=== PATIENT | female | born 1960 | race Two or more races ===

== ENCOUNTER 2018-08-12 20:55 | Emergency (ER) | payer OTHER ==
[~2018-08-12] VITALS: Ht 165.1 cm; Wt 90.7 kg
== END 2018-08-12 22:10 | disposition home or self-care (01) ==
LOC: ER 20:55
DX: S80.01XA Contusion of right knee, initial encounter (principal); W18.39XA Other fall on same level, initial encounter; Y93.89 Activity, other specified; Y92.89 Other specified places as the place of occurrence of the external cause; Y99.8 Other external cause status

== ENCOUNTER 2020-04-11 12:00 | Emergency (ER) | payer OTHER ==
[~2020-04-11] VITALS: Ht 165.1 cm; Wt 99.8 kg
[2020-04-11] MEDS ORDERED: SKELAXIN800 MG PO (16:01)
[2020-04-11] MEDS ORDERED: MEDROLPACK PO (16:01)
== END 2020-04-11 16:38 | disposition home or self-care (01) ==
LOC: ER 12:00
DX: S33.5XXA Sprain of ligaments of lumbar spine, initial encounter (principal); S13.4XXA Sprain of ligaments of cervical spine, initial encounter; M62.830 Muscle spasm of back; R07.89 Other chest pain; V43.52XA Car driver injured in collision with other type car in traffic accident, initial encounter; Y93.89 Activity, other specified; Y92.488 Other paved roadways as the place of occurrence of the external cause; Y99.8 Other external cause status

== ENCOUNTER 2022-06-15 15:42 | Inpatient (IN) | payer OTHER ==
[~2022-06-15] VITALS: Ht 165.1 cm; Wt 230.0 kg
[~2022-06-15 15:42] MED LIST: MEDROLPACK PO; SKELAXIN800 MG PO
[2022-06-15] MEDS ORDERED: PROMETRIUM200 MG (16:11)
--- NOTE | 2022-06-15 16:14 | NUR ---
PACIENTE ALERTA Y ORIENTADA EN SAVI ADE ESFERAS REFIERE TENER DOLOR ABDOMINAL QUE SE IRRADIA HACIA LOS COSTADOS Y LA ESPALDA BAJA. EN ADICION PACIENTE REFIERE TENER NAUSEAS. SE MONITOREAN VS Y SE UBICA EN PASILLO
--- NOTE | 2022-06-15 17:38 | NUR ---
PACIENTE EVALUADA POR EL QUIEN ORDENA TRATAMIENTO MEDICO. CRISTAL CEJA REALIZA MUESTRAS BAJO MEDIDAS ASEPTICAS Y ADMINISTRA MEDICAMENTOS SHADE ORDEN . SE ORIENTA SOBRE SONO ABD Y SE HACE ENTREGA DE U/A.
--- NOTE | 2022-06-16 01:26 | NUR ---
SE RECIBE PTE DEL TURNO ANTERIOR, ALERTA Y ORIENTADA EN SAVI ADE ESFERAS, UBICADA EN BILL NIVEL MAS BAJO, EATON DE IDENTIFICACION Y BARANDAS ELEVADAS POR PRECAUCION. SE OBSERVA CON BUEN PATRON RESPIRATORIO, PIEL TIBIA AL TACTO. IV PATENTE Y ABIODUN DE EDEMA O ERITEMA RECIBIENDO 0.9% NSS @120ML/HR. PENDIENTE CONSULTA CON DR COHN (MEDIC[facility] INTERNA) Y DR TYSON ([place]IR[place]). SE MANTIENE BAJO OBSERVACION.
== END 2022-06-19 20:08 | disposition home or self-care (01) | DRG 373 ==
LOC: ER 15:42 → SEC-K 06-16 10:44 → MEDI 06-16 10:44
PROVIDERS: ADMIT Internal Medicine; ATTEND Internal Medicine
DX: K35.890 Other acute appendicitis without perforation or gangrene (principal); Z20.822 Contact with and (suspected) exposure to COVID-19; I10 Essential (primary) hypertension

== ENCOUNTER 2022-09-28 15:13 | Emergency (ER) | payer OTHER ==
[~2022-09-28] VITALS: Ht 165.1 cm; Wt 104.3 kg
[~2022-09-28 15:13] MED LIST changes: +PROMETRIUM200 MG
[2022-09-28] MEDS ORDERED: [UNRECOGNIZED DRUG - OTHER] (15:54)
[2022-09-28] MEDS ORDERED: PRELONE (15:55)
[2022-09-28] MEDS ORDERED: XOPENEX0.63 MG/3 (15:55)
[2022-09-28] MEDS ORDERED: [UNRECOGNIZED DRUG - OTHER] (15:55)
== END 2022-09-28 22:38 | disposition home or self-care (01) ==
LOC: ER 15:13
DX: J20.9 Acute bronchitis, unspecified (principal)

== ENCOUNTER 2024-09-30 03:50 | Emergency (ER) | payer OTHER ==
[~2024-09-30] VITALS: Ht 165.1 cm; Wt 104.3 kg
[~2024-09-30 03:50] MED LIST changes: +PRELONE; +XOPENEX0.63 MG/3; +[UNRECOGNIZED DRUG - OTHER]; +[UNRECOGNIZED DRUG - OTHER]
[2024-09-30] MEDS ORDERED: METOCLOPRAMIDE HCL 5 MG/ML VIAL IM STA (05:11)
[2024-09-30] MEDS ORDERED: FAMOtidine 10 MG/ML (4ML VIAL) IV PUSH STA (05:12)
[2024-09-30] MEDS ORDERED: METOCLOPRAMIDE HCL 5 MG/ML VIAL ONE (05:18)
[2024-09-30] MEDS ORDERED: FAMOTIDINE/PF 20 MG/2 ML VIAL ONE (05:18)
== END 2024-09-30 06:44 | disposition home or self-care (01) ==
LOC: ER 04:15
DX: K29.70 Gastritis, unspecified, without bleeding (principal); K21.9 Gastro-esophageal reflux disease without esophagitis; Z88.0 Allergy status to penicillin